=== PATIENT | female | born 1965 | race African-American/Black ===

== ENCOUNTER 2021-02-26 10:19 | Emergency (ER) | payer OTHER ==
[~2021-02-26] VITALS: Ht 154.9 cm; Wt 70.3 kg
[2021-02-26 12:43] VITALS: BP 152/83
== END 2021-02-26 12:32 | disposition home or self-care (01) ==
LOC: ER 10:19
DX: S40.012A Contusion of left shoulder, initial encounter (principal); M54.5 Low back pain; M54.2 Cervicalgia; F17.210 Nicotine dependence, cigarettes, uncomplicated; V49.49XA Driver injured in collision with other motor vehicles in traffic accident, initial encounter; Y93.I9 Activity, other involving external motion; Y92.488 Other paved roadways as the place of occurrence of the external cause; Y99.8 Other external cause status